=== PATIENT | male | born 1985 | race Caucasian/White ===

== ENCOUNTER 2020-07-14 09:24 | Inpatient (IN) ==
[2020-07-14] MEDS ORDERED: Ringers Solution, Lactated 1,000 ML IVC SCH (10:00)
[2020-07-14] MEDS ORDERED: Ketorolac 15 MG/ML VIAL IVP ONE (10:00)
[2020-07-14] MEDS ORDERED: WATER FOR INJ IVP ONE (10:00)
[2020-07-14] MEDS ORDERED: CEFOXITIN IVP ONE (10:00)
[2020-07-14] MEDS ORDERED: Ondansetron 4 MG/2 ML VIAL ONE (10:09)
[2020-07-14] MEDS ORDERED: Lidocaine -MPF 2% 2 ML VIAL ONE (10:09)
[2020-07-14] MEDS ORDERED: Dexamethasone 4 MG/ML VIAL ONE (10:09)
[2020-07-14] MEDS ORDERED: *HR* FentaNYL (PF) 100 MCG/2 ML VIAL ONE (10:10)
[2020-07-14] MEDS ORDERED: *HR* Propofol 200 MG/20 ML VIAL IVP ONE (10:10)
[2020-07-14] MEDS ORDERED: *HR* Succinylcholine 200 MG/10 ML VIAL IVP ONE (10:10)
[2020-07-14] MEDS ORDERED: *HR* Midazolam HCl 2 MG/2 ML VIAL ONE (10:10)
[2020-07-14] MEDS ORDERED: *HR* Rocuronium Bromide 50 MG/5 ML VIAL ONE (10:10)
[2020-07-14] MEDS ORDERED: Pregabalin 75 MG CAPSULE PO ONE (10:15)
[2020-07-14] MEDS ORDERED: *HR* Labetalol 20 MG/4 ML SYRINGE IVP PRN (10:15)
[2020-07-14] MEDS ORDERED: Famotidine 20 MG/2 ML VIAL IVP ONE (10:15)
[2020-07-14] MEDS ORDERED: Scopolamine Patch 1.5 MG PATCH.TD72 TD ONE (10:15)
[2020-07-14] MEDS ORDERED: Acetaminophen IV 1,000 MG/100 ML INFUS..BTL IVPB ONE (10:15)
[2020-07-14] MEDS ORDERED: *HR* OxyCODONE Immed Rel 5 MG TABLET PO PRN (10:15)
[2020-07-14] MEDS ORDERED: *HR* HYDROmorphone 2 MG TABLET PO PRN (10:15)
[2020-07-14] MEDS ORDERED: Promethazine 6.25 MG in Water for inj. (sterile) 20 ML IVPB PRN (10:42)
[2020-07-14] MEDS ORDERED: CefOXitin 2,000 MG VIAL ONE (11:39)
[2020-07-14] MEDS ORDERED: EPHEDrine 50 MG/ML VIAL ONE (12:07)
[2020-07-14] MEDS ORDERED: Neostigmine Methylsulfate 3 MG/3 ML SYRINGE ONE (12:20)
[2020-07-14] MEDS ORDERED: *HR* HYDROMORPHONE 2 MG/ML VIAL ONE (12:55)
[2020-07-14] MEDS: *HR* HYDROmorphone (PF) 1 MG/ML SYRINGE IVP PRN ×2 (13:21→13:29)
[2020-07-14] MEDS ORDERED: Ipratropium/Albuterol Neb 3 ML IH PRN (13:50)
[2020-07-14] MEDS ORDERED: Ipratropium/Albuterol Neb 3 ML ONE (13:52)
[2020-07-14 14:53] LABS: ABG Base Excess -2 mEq/L (-2 to 3); ABG HCO3 28 mEq/L (21-27); ABG Oxygen Saturation 90 % (95-98); ABG PCO2 72 mmHg (35-45); ABG PO2 74 mmHg (85-104); ABG TCO2 30 mEq/L (20-26)
[2020-07-14 17:04] LABS: ABG Base Excess 0 mEq/L (-2 to 3); ABG HCO3 28 mEq/L (21-27); ABG Oxygen Saturation 100 % (95-98); ABG PCO2 61 mmHg (35-45); ABG PH 7.27 pH Units (7.32-7.45); ABG PO2 200 mmHg (85-104); ABG TCO2 30 mEq/L (20-26); Blood Gas Modality NIV
[2020-07-14] MEDS ORDERED: clonazePAM 0.5 MG TABLET PO PRN (18:06)
[2020-07-14] MEDS ORDERED: Naloxone 0.4 MG/ML INJ IVP PRN (18:06)
[2020-07-14] MEDS ORDERED: Ondansetron 4 MG/2 ML VIAL IVP PRN (18:06)
[2020-07-14] MEDS ORDERED: Sennosides 8.6 MG TABLET PO PRN (18:06)
[2020-07-14] MEDS: Ringers Solution, Lactated 1,000 ML IVC SCH (18:49)
[2020-07-14] MEDS: Ibuprofen 600 MG TABLET PO SCH (18:54)
[2020-07-14] MEDS: Acetaminophen 325 MG TABLET PO SCH (18:54)
[2020-07-14] MEDS ORDERED: cefOXitin 1,000 MG in Water for inj. (sterile) 10 ML IVP SCH (20:00)
[2020-07-14] MEDS: *HR* OxyCODONE Immed Rel 5 MG TABLET PO PRN (20:45)
[2020-07-14] MEDS: cefOXitin 1,000 MG in Water for inj. (sterile) 10 ML IVP SCH (21:39)
[2020-07-15] MEDS: Ibuprofen 600 MG TABLET PO SCH ×3 (00:14→10:53)
[2020-07-15] MEDS: Acetaminophen 325 MG TABLET PO SCH ×2 (01:13→06:20)
[2020-07-15] MEDS: *HR* OxyCODONE Immed Rel 5 MG TABLET PO PRN (04:36)
[2020-07-15] MEDS: cefOXitin 1,000 MG in Water for inj. (sterile) 10 ML IVP SCH (04:37)
[2020-07-15] MEDS: Ringers Solution, Lactated 1,000 ML IVC SCH ×2 (06:22→10:54)
[2020-07-15 07:16] VITALS: BP 105/62
[2020-07-15] MEDS ORDERED: Cholecalciferol (D-3) 1,000 UNIT (25MCG) TABLET PO SCH (09:00)
[2020-07-15] MEDS ORDERED: Famotidine 20 MG TABLET PO SCH (09:00)
[2020-07-15] MEDS ORDERED: Dexamethasone 4 MG/ML VIAL IVP SCH (11:00)
[2020-07-15] MEDS ORDERED: Dexamethasone 4 MG/ML VIAL IVP ONE (11:00)
[2020-07-16 17:00] LABS: ABG Base Excess 0 mEq/L (-2 to 3); ABG HCO3 28 mEq/L (21-27); ABG Oxygen Saturation 99 % (95-98); ABG PCO2 55 mmHg (35-45); ABG PH 7.31 pH Units (7.32-7.45); ABG PO2 157 mmHg (85-104); ABG TCO2 29 mEq/L (20-26)
== END 2020-07-15 11:40 | disposition home or self-care (01) | DRG 876 ==
LOC: SAMDAY 09:24 → 3BNU 18:01
PROVIDERS: ADMIT Obstetrics & Gynecology; ATTEND Obstetrics & Gynecology